=== PATIENT | female | born 1955 | race Caucasian/White ===

== ENCOUNTER → 2016-06-07 | Outpatient (CLI) | payer OTHER ==
[~2016-06-07] MED LIST: ASPI-232 PO; CHOL1000 PO; CINN1CAP2 PO; COEN75CA PO; ELET40TA PO; GING1CAP PO; KETO10TA PO; LISI20TA3 PO; METO25TA56 PO; MULT-506 PO; OMEG10007 PO; OXYC-57 PO; TUMERIC PO; VILA1TAB3 PO
[2016-06-07 15:38] LABS: BASO % 0.3 %; BASO ABS # 0.02 K/uL (0-0.2); COMPLETE YES; EOS % 0.6 %; HEMATOCRIT 39.2 % (37-47); IG% 0.1 %; LYMPH % 31.9 %; LYMPH ABS # 2.13 K/uL (1.2-3.4); MEAN CELL VOLUME 91.2 fL (80-100); MEAN CORPUSCULAR HEMOGLOBIN 32.6 pg (25-34); MEAN CORPUSCULAR HGB CONC 35.7 g/dl (32-36); MEAN PLATELET VOLUME 9.3 fL (7.4-10.4); MONO % 5.8 %; NEUT % 61.3 %; PLATELET COUNT 211 K/uL (130-400); WHITE BLOOD COUNT 6.68 K/uL (4.8-10.8)
[2016-06-07 16:07] LABS: POTASSIUM 3.8 mmol/L (3.5-5.1)
== END | disposition home or self-care (01) ==
LOC: C.LAB 14:12
PROVIDERS: ATTEND Orthopaedic Surgery Sports Medicine
DX: Z01.812 Encounter for preprocedural laboratory examination (principal); M23.40 Loose body in knee, unspecified knee

== ENCOUNTER → 2016-06-15 | Day surgery (SDC) | payer OTHER ==
[2016-06-13 11:49] VITALS: Ht 170.2 cm; Wt 90.0 kg
[~2016-06-15] VITALS: Ht 170.2 cm; Wt 90.0 kg
[~2016-06-15] MED LIST changes: +ATROPINE SULFATE 0.1 MG/ML 5ML SYR IV PRN; +CEFAZOLIN 2000 MG/60 ML D5W IV SCH; +DEXAMETHASONE SOD INJ 4 MG/ML VIAL IV PRN; +DEXAMETHASONE SOD INJ 4 MG/ML VIAL ONE; +EpHEDrine SULFATE INJ 50 MG/ML AMP IV PRN; +EpINEphrine INJ 1MG/ML AMP 1 MG/ML AMP ONE; +FENTANYL CITRATE INJ 50 MCG/1 ML 2 ML VIAL IV PRN; +FENTANYL CITRATE INJ 50 MCG/1 ML 2 ML VIAL ONE; +KETOROLAC TROMETHAMINE 30 MG/ML VIAL IV. PRN; +KETOROLAC TROMETHAMINE 30 MG/ML VIAL ONE; +LABETALOL HCL IV 5 MG/ML 20ML IV PRN; +LACTATED RINGER'S 1000ML 1,000 ML IV SCH; +LIDOCAINE HCL 2% 2 ML VIAL (20MG/ML) ONE; +METOCLOPRAMIDE HCL INJ 5 MG/ML 2 ML VIAL IV PRN; +MIDAZOLAM HCL 1 MG/ML 2ML VIAL ONE; +MoRPHine SULFATE 10 MG/ML CARP/VIAL IV PRN; +ONDANSETRON INJ 2 MG/ML 2 ML VIAL IV PRN; +ONDANSETRON INJ 2 MG/ML 2 ML VIAL ONE; +OXYCODONE/ACETAMINOPHEN 5-325 TAB PO PRN; +PHENYLEPHRINE 100MCG/ML 5ML SYR IV PRN; +PROPOFOL IV EMULSION 10 MG/ML 20 ML VIAL IV ONE; +ROPIVACAINE 0.5% 5 MG/ML 30 ML VIAL ONE; +SCOPOLAMINE 1.5 MG TDSY TD ONE; +SODIUM CHLORIDE 0.9% 1000ML 1,000 ML IV SCH
--- NOTE | 2016-06-15 06:59 | History & Physical Bridge - [place] ---
H&P Re-Evaluation Bridge Note: I have examined the patient, reviewed the History & Physical and in the interval since the performance of the History & Physical I have noted the following changes of clinical significance: No changes noted
--- NOTE | 2016-06-15 07:45 | Discharge Instructions-SurgCtr ---
Discharge Instructions Visit Reason for Visit: Left Knee Loose Body, Localized Primary Osteoarthr Discharge Discharge Diagnosis / Problem: left knee loose body, DJD, meniscus tear Discharge Goals Goal(s): Decrease discomfort, Improve function, Therapeutic intervention Activity Recommendations Activity Limitations: per Instructions/Follow-up section Weightbearing Status: Left weightbearing (as tolerated) Anesthesia . Post Anesthesia Instructions: If you have had General Anesthesia or IV Sedation: * Do not drive today. * Resume driving when surgeon permits. * Do not make important decisions or sign legal documents today. * Call surgeon for: 1. Temperature elevations greater than 101 degrees F. 2. Uncontrollable pain. 3. Excessive bleeding. 4. Persistent nausea and vomiting. 5. Medication intolerance (nausea, vomiting or rash). * For nausea and vomiting use only clear liquids such as: tea, soda, bouillon until nausea subsides, then gradually increase diet as tolerated. * If you have any concerns or questions, call your surgeon's office. If physician is unavailable and it is an emergency, call 911 or go to the nearest emergency room. . Instructions / Follow-Up Instructions / Follow-Up MEDICATIONS: * Resume previous medications unless instructed otherwise by your surgeon. * Always take pain medication on a full stomach or with food to avoid upset stomach. * Do not drink alcohol or drive while taking narcotics. * Ibuprofen or Tylenol may be taken if narcotic not needed. No ibuprofen while taking toradol SPECIAL CARE INSTRUCTIONS: __ None _x_ Keep extremity elevated and iced x 48 hours; apply ice 20-30 minutes 8-10 times/day. May remove at night. __ Crutches __ May discard when able __ Brace/Post-op shoe __ 24 hrs/day __ Remove at night _x_ Dressing __ Maintain until seen in office, may shower with plastic over site _x_ Remove dressings in 24-48 hours and then may shower _x_ Cover incisions with band-aids after showering __ Do not remove steri-strips Call physician if chills or temperature rises above 102 degrees or pain unrelieved by prescribed pain medications. Office [phone] follow up in 2 weeks Diet Recommendations Home Diet: resume previous diet Procedures Procedures Performed: Left Knee Arthroscopy, Loose Body Removal Partial Medial and Lateral Meniscectomy, Pending Studies Studies pending at discharge: no Medical Emergencies . Who to Call and When: Medical Emergencies: If at any time you feel your situation is an emergency, please call 911 immediately. . Non-Emergent Contact Non-Emergency issues call your: Primary Care Provider, Surgeon . . "Provider Documentation" section prepared by Jluis Gonzalez.
--- NOTE | 2016-06-15 07:55 | [facility] Post Operative Brief Note ---
Immediate Operative Summary Operative Date Jun 15, 2016. Pre-Operative Diagnosis Left Knee Loose Body, Localized Primary Osteoarthritis Post-Operative Diagnosis Left Knee - Loose Body + Medial and Lateral Meniscus Tears + DJD Procedure(s) Performed Left Knee Arthroscopy, Loose Body Removal, Partial Medial and Lateral Meniscectomy, Surgeon Dr. Kayden Muse Wood Type Cutter Surgeon(s) None Estimated Blood Loss Minimal Findings Loose Body + Medial and Lateral Meniscus Tears + DJD Specimens None Anesthesia General Complication(s) None Disposition Recovery Room / PACU
--- NOTE | 2016-06-15 08:22 | OPERATIVE REPORT ---
DATE OF OPERATION: 06/15/2016 SURGEON: Parth Muse MD PREOPERATIVE DIAGNOSIS: 1. Left knee loose body. 2. Left knee degenerative joint disease. POSTOPERATIVE DIAGNOSIS: 1. Left knee loose body. 2. Left knee moderate DJD were some grade 2-3 changes of the patellofemoral joint and medial compartment. 3. Left knee medial meniscus tear. 4. Left knee lateral meniscus tear. PROCEDURE PERFORMED: 1. Left knee exam under anesthesia. 2. Left knee diagnostic arthroscopy. 3. Left knee arthroscopic partial medial meniscectomy. 4. Left knee arthroscopic partial lateral meniscectomy. 5. Left knee arthroscopic loose body removal. COMPLICATIONS: None. ESTIMATED BLOOD LOSS: Minimal. TOURNIQUET TIME: 25 minutes at 300 mmHg. OPERATIVE INDICATIONS: The patient is a 60-year-old female who has had about a 6-month history of left knee pain, discomfort and intermittent locking and swelling. She had been through conservative treatment. She had a little bit of temporary relief from an injection. She did have evidence of loose body on x-ray. She continued to have mechanical symptoms in her knee, most consistent with a loose body. She had failed conservative treatment and elected to proceed with operative treatment. OPERATIVE FINDINGS: Examination under anesthesia of the left knee reveals small knee effusion. Range of motion is full extension to 135 degrees of flexion. She had no clinical instability and Mariza was negative for mechanical symptoms. ARTHROSCOPIC FINDINGS: Arthroscopic findings revealed a small knee effusion. She had some grade 2 changes of the patella. The trochlea was fairly well preserved. In the intercondylar notch, the ACL and PCL were intact. There was a loose body in the intercondylar notch which did have some synovial attachment. She did have some bony hypertrophy at the ACL insertion on the tibia. There was a slight bony prominence there as well. In the medial compartment she had grade 2 to 3 changes of the medial femoral condyle. She did have a degenerative tear of the posterior horn of the medial meniscus. In the lateral compartment, the articular surface was fairly well preserved. She did have pretty extensive degenerative tearing of the inner rim of the lateral meniscus. OPERATIVE PROCEDURE: The patient was taken to the operating room, identified and placed on the operating table in supine position. All contact areas were appropriately padded. IV antibiotics were provided by anesthesia team. A general anesthetic was implemented by anesthesia team. Left thigh tourniquet was then placed. Left knee was then examined under anesthesia with the findings as described above. Left leg was then prepped and draped in the usual sterile fashion. The left leg was elevated and exsanguinated with Esmarch and tourniquet was placed at 300 mmHg. Routine left knee arthroscopy was then performed through typical anteromedial and anterolateral portals. A superolateral outflow port established for outflow. I did have to resect some of the synovium. I tried to remove the loose body, but it was clearly attached to some synovium. I did resect the synovium. The loose body then kind of migrated to the lateral compartment of the knee. I was able to localize this and remove it and a picture was obtained of this. Attention was then drawn to the menisci. With the use of motorized and hand controlled instruments, the inner rim of the lateral meniscus was excised back to stable tissue. Attention was then drawn medially. With the use of motorized and hand controlled instruments a partial medial meniscectomy was then performed. I similarly resected the inner rim tearing of the medial meniscus. Once this was complete, I did some light debridement of the medial femoral condyle as well as the patella. The arthroscopic instruments were then placed throughout the knee joint. All extraneous debris was removed. The arthroscopic instruments were then removed from the joint. The portals were closed with 3-0 Prolene suture in simple fashion. The knee was injected with 30 mL of 0.5% ropivacaine with epinephrine and 30 mg of Toradol. Sterile dressing composed of Xeroform, 4 x 4, sterile cast padding and Guanako bandage were applied. The tourniquet was then let down for a final tourniquet time of 25 minutes. The patient was then brought out of general anesthesia and transferred to the recovery room in stable condition. The patient tolerated the procedure well without complication. All needle and sponge counts were correct at the end of the operation. I attest to the content of the Intraoperative Record and any orders documented therein. Any exceptions are noted below. DOMENICA
[2016-06-15 08:38] VITALS: TEMP 36.3
[2016-06-15 09:06] VITALS: BP 128/78; PULSE 63; O2SAT 97
--- NOTE | 2016-06-15 09:07 | Anesthesia Progress Nt - [facility] ---
Anesthesia Post Op Note Date & Time Jun 15, 2016 at 09:07 Vital Signs Pain Intensity: 2.0 Vital Signs Past 12 Hours Date Time Temp Pulse Resp B/P Pulse Ox O2 Delivery O2 Flow Rate FiO2 06/15/16 08:38 36.3 66 16 132/84 98 Room Air 06/15/16 08:28 123/82 06/15/16 08:26 36.6 64 12 123/77 95 Room Air 06/15/16 08:25 67 12 93 06/15/16 08:25 67 12 06/15/16 08:24 67 19 123/77 92 06/15/16 08:24 67 19 06/15/16 08:19 70 17 06/15/16 08:19 69 17 95 06/15/16 08:18 136/84 06/15/16 08:14 72 23 06/15/16 08:14 72 23 99 06/15/16 08:13 138/88 06/15/16 08:09 65 10 100 06/15/16 08:09 65 10 06/15/16 08:08 142/86 06/15/16 08:04 69 10 06/15/16 08:04 69 10 100 06/15/16 08:03 69 11 100 06/15/16 08:03 68 11 06/15/16 07:58 67 12 137/89 100 06/15/16 07:58 67 12 06/15/16 07:53 63 12 136/89 99 06/15/16 07:53 37.0 64 12 137/87 99 Diffusion Mask 6 06/15/16 07:53 63 12 06/15/16 06:25 36.7 70 16 138/93 96 Room Air Notes Mental Status: alert / awake / arousable, participated in evaluation Pt Amnestic to Procedure: Yes Nausea / Vomiting: adequately controlled Pain: adequately controlled Airway Patency, RR, SpO2: stable & adequate BP & HR: stable & adequate Hydration State: stable & adequate Anesthetic Complications: no major complications apparent
== END | disposition home or self-care (01) ==
LOC: X.SURG 06:08
PROVIDERS: ATTEND Orthopaedic Surgery Sports Medicine
DX: M23.232 Derangement of other medial meniscus due to old tear or injury, left knee (principal); M23.202 Derangement of unspecified lateral meniscus due to old tear or injury, unspecified knee; M23.42 Loose body in knee, left knee; I10 Essential (primary) hypertension; F32.9 Major depressive disorder, single episode, unspecified; Z90.710 Acquired absence of both cervix and uterus

== ENCOUNTER → 2016-11-03 | Outpatient (CLI) | payer OTHER ==
[~2016-11-03] MED LIST changes: -ATROPINE SULFATE 0.1 MG/ML 5ML SYR IV PRN; -CEFAZOLIN 2000 MG/60 ML D5W IV SCH; -DEXAMETHASONE SOD INJ 4 MG/ML VIAL IV PRN; -DEXAMETHASONE SOD INJ 4 MG/ML VIAL ONE; -EpHEDrine SULFATE INJ 50 MG/ML AMP IV PRN; -EpINEphrine INJ 1MG/ML AMP 1 MG/ML AMP ONE; -FENTANYL CITRATE INJ 50 MCG/1 ML 2 ML VIAL IV PRN; -FENTANYL CITRATE INJ 50 MCG/1 ML 2 ML VIAL ONE; -KETO10TA PO; -KETOROLAC TROMETHAMINE 30 MG/ML VIAL IV. PRN; -KETOROLAC TROMETHAMINE 30 MG/ML VIAL ONE; -LABETALOL HCL IV 5 MG/ML 20ML IV PRN; -LACTATED RINGER'S 1000ML 1,000 ML IV SCH; -LIDOCAINE HCL 2% 2 ML VIAL (20MG/ML) ONE; -METOCLOPRAMIDE HCL INJ 5 MG/ML 2 ML VIAL IV PRN; -MIDAZOLAM HCL 1 MG/ML 2ML VIAL ONE; -MoRPHine SULFATE 10 MG/ML CARP/VIAL IV PRN; -ONDANSETRON INJ 2 MG/ML 2 ML VIAL IV PRN; -ONDANSETRON INJ 2 MG/ML 2 ML VIAL ONE; -OXYCODONE/ACETAMINOPHEN 5-325 TAB PO PRN; -PHENYLEPHRINE 100MCG/ML 5ML SYR IV PRN; -PROPOFOL IV EMULSION 10 MG/ML 20 ML VIAL IV ONE; -ROPIVACAINE 0.5% 5 MG/ML 30 ML VIAL ONE; -SCOPOLAMINE 1.5 MG TDSY TD ONE; -SODIUM CHLORIDE 0.9% 1000ML 1,000 ML IV SCH
--- NOTE | 2016-11-04 08:00 | MAMMOGRAPHY REPORT ---
BILATERAL DIGITAL SCREENING MAMMOGRAM WITH CAD: 11/03/2016 CLINICAL HISTORY: Routine screening. Patient has no complaints. TECHNIQUE: Current study was also evaluated with a Computer Aided Detection (CAD) system. Bilateral CC and MLO views were obtained. COMPARISON: Comparison is made to exams dated: 10/21/2015 mammogram, 10/13/2014 mammogram, 07/22/2013 [facility] mogram, 05/07/2012 mammogram, 07/13/2005 mammogram - [facility], and 12/04/2003 [facility]og [facility]. BREAST COMPOSITION: There are scattered areas of fibroglandular density in both breasts. FINDINGS: No suspicious masses, calcifications, or areas of architectural distortion are noted in ei ther breast. There has been no significant interval change compared to prior exams. Scattered bilater al benign-appearing calcifications are not significantly changed. Benign intramammary lymph node in the right upper outer quadrant is stable dating back to at least the 2011 exam. IMPRESSION: ACR BI-RADS CATEGORY 2: BENIGN There is no mammographic evidence of malignancy. A 1 year screening mammogram is recommended. The pa tient will receive written notification of the results. Approximately 10% of breast cancers are not detected with mammography. A negative mammographic report should not delay biopsy if a clinically suggestive mass is present. Mariama Jacinto M.D. /:11/03/2016 15:57:26 [employer] Paralegal: Laury Roman, [facility] letter sent: Normal 1/2 BI-RADS Code: ACR BI-RADS Category 2: Benign
== END | disposition home or self-care (01) ==
LOC: C.MAMM 14:21
PROVIDERS: ATTEND Obstetrics & Gynecology
DX: Z12.31 Encounter for screening mammogram for malignant neoplasm of breast (principal)